=== PATIENT | female | born 1980 | race Caucasian/White ===

== ENCOUNTER 2020-12-13 13:25 | Emergency (ER) | payer OTHER, SELFPAY ==
[2020-12-13 13:28] VITALS: BP 126/79; PULSE 112; RESP 16; TEMP 36.1; O2SAT 98; BMI 34.9
--- NOTE | 2020-12-13 13:58 | ED_ITS ---
HPI - Allergic Reaction General Chief complaint: Allergic Reaction Stated complaint: allergic reaction - used epipen Time Seen by Provider: 12/13/20 13:52 Source: patient Mode of arrival: ambulatory Limitations: no limitations History of Present Illness MD complaint: allergic reaction and hives Onset (ago): hour(s) (1030am) Exposure: food (apple) Known history of allergy to: apple Symptoms: rash, itching, facial swelling, difficulty swallowing and hoarseness Severity: similar to previous episodes Treatment prior to arrival: epinephrine Previous Allergic Reaction History: anaphylaxis Related Data Previous Rx's Medication Instructions Recorded epinephrine 0.3 mg/0.3 mL 0.3 mg IM Q10M PRN #2 ea 12/13/20 injection, auto-injector Allergies Allergy/AdvReac Type Severity Reaction Status Date / Time amoxicillin [AMOXICILLIN] Allergy Severe VOMIT/HIVES Unverified 12/30/19 19:38 clavulanic acid Allergy Severe HIVES/VOMIT Unverified 12/30/19 19:38 [From AUGMENTIN] metoclopramide [From REGLAN] Allergy Severe SEIZURE/VOM Unverified 12/30/19 19:38 IT Penicillins [PENICILLINS] Allergy Severe ANAPHYLAXIS Unverified 12/30/19 19:38 tetracycline [TETRACYCLINE] Allergy Severe HIVES/VOMIT Unverified 12/30/19 19:38 azithromycin [AZITHROMYCIN] Allergy Unknown VOMIT/HIVES Unverified 12/30/19 19:38 apple Allergy Anaphylaxis Verified 12/13/20 13:32 Review of Systems Review of Systems: Constitutional : No Fever, No Chills ENT/Mouth : no oral swelling, pos Hoarseness, pos Swallowing Difficulty Eyes: No Eye Pain, No Swelling, No Redness Cardiovascular : No Chest Pain, No SOB Respiratory : No Cough, No Sputum, No Wheezing, No Smoke Exposure, No Dyspnea Gastrointestinal : No Nausea, No Vomiting, No Diarrhea, No abdominal Pain Genitourinary : No Dysuria, No Urinary Frequency, No Hematuria Musculoskeletal : No joint pain, No Myalgias, No Joint Swelling Skin : No Skin Lesions, positive rash Neuro : No Weakness, No Numbness, No Headache Psych : No Anxiety/Panic, No Depression Heme/Lymph: No Bruising, No Lymphadenopathy Endocrine : No Polyuria, No Polydipsia All other systems reviewed and are negative [facility] Past Medical History Medical History Allergic reaction Social History Social History (Updated 12/13/20 @ 14:05 by Carol Santos DO) Patient Tobacco Use Status: Never used Tobacco Use of substances other than those prescribed or required for medical reasons: No Advance Directives: No Advance Directives Information Provided: No Physical Exam Vital Signs: Vital Signs: Last Vital Signs Temp 97 F 12/13/20 13:28 Pulse 112 H 12/13/20 13:28 Resp 16 12/13/20 13:28 BP 126/79 12/13/20 13:28 Pulse Ox 98 12/13/20 13:28 Body Mass Index 34.9 Appearance: Alert. Oriented X3. No acute distress. Eyes: Pupils equal, round and reactive to light. ENT: Pharynx normal. Neck: Normal inspection. Neck supple. CVS: Normal heart rate and rhythm. Pulses normal. Chest: some slight erythema/hives noted on chest Respiratory: No respiratory distress. Breath sounds normal. Abdomen: Soft and nontender. Skin: Skin warm and dry. Normal skin color. Normal skin turgor. Extremities: No lower extremity edema. No calf ttp Neuro: Oriented X 3. No motor deficit. No sensory deficit. Course Course Course Narrative: patient feels better wants to go home MDM - Allergic Reaction MDM Narrative Medical decision making narrative: 40 yo female with prior allergic reactions self admin epi at 1030 now still feels itchy with hives and increased HR - will dose with steroids, pepcid, benadryl and observe. Patient had known exposure to apple Discharge Plan Discharge Clinical Impression: Allergic reaction Qualifiers: Encounter type: initial encounter Qualified Code(s): T78.40XA - Allergy, unspecified, initial encounter Patient Disposition: Home, Self-Care Instructions: General Allergic Reaction (ED) Additional Instructions: return to ED for any worsening symptoms or concerns Prescriptions: New epinephrine 0.3 mg/0.3 mL auto-injector 0.3 mg IM Q10M PRN (Reason: anaphylaxis) Qty: 2 RF: 0 Stand Alone Forms: Work/School Release
[2020-12-13] MEDS: diphenhydrAMINE HCL 50 MG/ML VIAL 25 MG IVPUSH (14:05)
[2020-12-13] MEDS: methylPREDNISolone Sod Succ 125 MG/2 ML VIAL IVPUSH (14:05)
[2020-12-13] MEDS: Famotidine/PF 20 MG/2 ML VIAL IVPUSH (14:06)
== END 2020-12-13 15:54 | disposition home or self-care (01) ==
PROVIDERS: Emergency Provider Emergency Medicine; PCP Internal Medicine Sports Medicine
DX: T78.1XXA Other adverse food reactions, not elsewhere classified, initial encounter (principal); L50.9 Urticaria, unspecified; X58.XXXA Exposure to other specified factors, initial encounter
CPT/HCPCS: 96374; 96375; 99283; 99284; J1200; J2930

== ENCOUNTER 2022-11-07 18:07 | Emergency (ER) | payer BC, SELFPAY ==
--- NOTE | ~2022-11-07 | US_ITS ---
EXAMINATION: US VENOUS ULTRASOUND WITH DOPPLER LOWER EXTREMITY, RIGHT CLINICAL INFORMATION: Right calf pain COMPARISON: None available. TECHNIQUE: Ultrasound of the deep veins is performed from the hip to the calf with compression sonography and color and pulse Doppler assessment. Spectral analysis with color-flow imaging is performed. FINDINGS: There is normal venous compression and respiratory variation and augmented flow. The visualized common femoral vein, superficial femoral vein, profunda femoral vein, popliteal vein, and the trifurcation region shows no evidence of deep venous thrombosis. There is no significant popliteal fossa cyst. If the patient's symptoms persist, followup ultrasound in 5 days 7 days might be of value to exclude proximal propagation from a non-visualized calf vein. US/US venous duplex LE RT IMPRESSION: No DVT demonstrated in the right lower extremity.
[2022-11-07 18:46] VITALS: BP 136/83; PULSE 82; RESP 16; O2SAT 100; BMI 33.7
--- NOTE | 2022-11-07 18:46 | ED.GENADULT ---
HPI - General Adult General Chief complaint: Extremity Injury, Lower Stated complaint: blood clot in leg? Time Seen by Provider: 11/07/22 21:25 Source: patient Mode of arrival: ambulatory Limitations: no limitations History of Present Illness HPI narrative: 42-year-old female came in for evaluation of right lower extremity cramps and pain, patient declined any recent travel or prolonged immobilization or history of DVT, patient also declined any trauma or injury to the right leg, pain described as dull aching cramps in the right calf with swelling feels better with massaging the leg. Related Data Previous Rx's Medication Instructions Recorded epinephrine 0.3 mg/0.3 mL 0.3 mg (0.3 mL) IM Q10M PRN 12/13/20 injection, auto-injector anaphylaxis #2 ea Allergies Allergy/AdvReac Type Severity Reaction Status Date / Time amoxicillin [AMOXICILLIN] Allergy Severe VOMIT/HIVES Unverified 12/30/19 19:38 clavulanic acid Allergy Severe HIVES/VOMIT Unverified 12/30/19 19:38 [From AUGMENTIN] metoclopramide [From REGLAN] Allergy Severe SEIZURE/VOM Unverified 12/30/19 19:38 IT Penicillins [PENICILLINS] Allergy Severe ANAPHYLAXIS Unverified 12/30/19 19:38 tetracycline [TETRACYCLINE] Allergy Severe HIVES/VOMIT Unverified 12/30/19 19:38 azithromycin [AZITHROMYCIN] Allergy Unknown VOMIT/HIVES Unverified 12/30/19 19:38 apple Allergy Anaphylaxis Verified 12/13/20 13:32 Review of Systems Review of Systems: All other systems are reviewed and are negative Constitutional: Reports as per HPI and Reports no additional constitutional complaints Eyes: Reports as per HPI and Reports no additional eye complaints Reports system reviewed and no additional complaints, except as documented Cardiovascular: Reports as per HPI and Reports no additional cardiovascular complaints Respiratory: Reports as per HPI and Reports no additional respiratory complaints Gastrointestinal: Reports as per HPI and Reports no additional gastrointestinal complaints Genitourinary: Reports no additional female genitourinary complaints Musculoskeletal: Reports no additional musculoskeletal complaints Skin/Breast: Reports system reviewed and no additional complaints, except as docu Psychiatric: Reports no additional psychiatric complaints Endocrine: Reports no additional endocrine complaints Hematologic/Lymphatic: Reports no additional hematologic/lymphatic complaints Allergic/Immunologic: Reports no additional allergic/immunologic complaints Reports system reviewed and no additional complaints, except as documented and Reports Abnormal speech present [facility] Past Medical History Medical History Allergic reaction Social History Social History Patient Tobacco Use Status: Never used Tobacco Advance Directives: No Advance Directives Information Provided: No Patient : No Physical Exam ED Vital Signs: Vital Signs - 24 hr 11/07/22 18:46 11/07/22 21:18 Pulse Rate 82 80 Respiratory Rate 16 18 Blood Pressure 136/83 151/86 H Pulse Oximetry 100 100 Oxygen Delivery Method Room Air Room Air BMI result Body Mass Index 33.7 Vital signs have been reviewed as appeared to be correct. Blood pressure normal. Heart rate normal. Respiration rate normal. Temperature normal. Oxygen saturation normal. Appearance: Alert. Oriented X3. No acute distress. Head: Normal external exam. Normocephalic. Atraumatic. No Patricio signs noted. No raccoon eyes noted Eyes: PERRLA. EOMI. Conjunctiva and sclera normal. Eyelids normal. ENT: TM's Normal. Pharynx normal. Uvula midline. Moist mucous membranes. No trismus noted. No drooling noted. No muffled voice noted. Neck: Normal inspection. Neck supple. FROM. No adenopathy. Thyroid Normal. No meningeal signs. No neck mass noted. CVS: Normal heart rate and rhythm. Heart sound normal. No murmurs noted. Pulses normal throughout. Respiratory: No respiratory distress. Painless inspiration. Breath sounds normal. No wheezes/rales/rhonchi noted. Chest nontender. No accessory muscle usage noted or decreased air movement noted. Abdomen: Soft and nontender. Bowel sounds normal in all 4 quadrants. No distention noted. No organomegaly noted. No visible injury noted. Back: No CVA tenderness. Full range of motion noted. Skin: Skin warm and dry. Normal skin color. Normal skin turgor. No rashes/lesions/lacerations noted. Extremities: No lower extremity edema mild right calf tenderness. Extremities exhibit normal range of motion. Extremities nontender. Neuro: Oriented X 3. Cranial nerve exam: II-XII are grossly intact No motor deficit. No sensory deficit. Reflexes normal. Course Course Course Narrative: This is an RME: Additional HPI, ROS, PE not included below will be deferred to primary provider. 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 TTP over calf, unable to visualize calf due to unable to RLE due to pants. Plan: Labs, US Reevaluation(s) Reevaluation #1: Right lower extremities pain for 2 days ultrasound showing no DVT, continue with leg elevation, rest, heating pad, NSAIDs if needed for pain. Time: 21:41 Medical Decision Making Differential Diagnosis Differential Diagnoses: The differential diagnosis associated with the presentation includes (DVT, cellulitis, electrolyte abnormality, severe dehydration, severe anemia.) Admission/Observation Consideration of admission/observation: Escalation of care including admission/observation considered Lab Data MDM Lab Attestation statement: I reviewed the patient's lab results. 11/07/22 19:08 11/07/22 19:08 Labs: Lab Results 11/07/22 11/07/22 11/07/22 Range/Units 19:08 19:08 19:08 WBC 5.3 (4.8-10.8) X10*3/uL RBC 4.54 (4.20-5.50) X10*6/uL Hgb 9.4 L (12.0-16.0) g/dl Hct 32.0 L (37.0-47.0) % MCV 70.5 L (80.0-98.0) fL MCH 20.7 L (27.0-33.0) pg MCHC 29.4 L (31.0-35.0) g/dl RDW 15.8 (11.0-16.0) % Plt Count 363 (160-400) X10*3/uL MPV 9.1 L (9.4-12.3) fL Immature Gran % (Auto) 0.2 (0.0-0.4) % Neut % (Auto) 53.2 (45-73) % Lymph % (Auto) 34.3 (20-40) % [place] % (Auto) 8.8 (2-11) % Eos % (Auto) 2.4 (0-4) % Baso % (Auto) 1.1 (0-2) % Lymph # (Auto) 1.8 (1.2-4.9) X10*3/uL [place] # (Auto) 0.5 (0.1-1.2) X10*3/uL Eos # (Auto) 0.1 (0.0-0.4) X10*3/uL Baso # (Auto) 0.1 (0.0-0.2) X10*3/uL Abs Immat Gran (auto) 0.01 (0.00-0.03) X10*3/uL Absolute Neuts (auto) 2.8 (2.0-8.3) x10*3/uL Absolute Nucleated RBC 0.000 (0.0-0.012) X10*3/uL Nucleated RBC % (auto) 0.0 (0.0-0.2) /100WBC PT 12.0 (11.1-13.3) SEC INR 1.0 (0.9-1.1) APTT 31.9 (26.0-36.4) SEC Sodium 138 (135-145) mmol/L Potassium 3.7 (3.3-5.1) mmol/L Chloride 107 (96-108) mmol/L Carbon Dioxide 20 L (22-29) mmol/L Anion Gap 15 (12-20) BUN 9 (9-16) mg/dL Creatinine 0.68 (0.5-1.4) mg/dL Estim Creat Clear Calc 112.2 Estimated GFR > 60 Random Glucose 85 (60-115) mg/dL Calcium 9.9 (8.4-10.2) mg/dL Urine Color Urine Appearance Urine pH (5.0-9.0) Ur Specific [place] (1.005-1.025) Urine Protein (Neg-Trace) mg/dL Urine Glucose (UA) (Negative) mg/dL Urine Ketones (Negative) mg/dL Urine Blood (Negative) Urine Nitrite (Negative) Ur Leukocyte Esterase (Negative) Urine RBC (0-2) /HPF Urine WBC (0-5) /HPF Ur Squamous Epith Cells (0-2) /HPF Urine Bacteria (None Seen) Hyaline Casts (0-2) /LPF 11/07/22 Range/Units 19:08 WBC (4.8-10.8) X10*3/uL RBC (4.20-5.50) X10*6/uL Hgb (12.0-16.0) g/dl Hct (37.0-47.0) % MCV (80.0-98.0) fL MCH (27.0-33.0) pg MCHC (31.0-35.0) g/dl RDW (11.0-16.0) % Plt Count (160-400) X10*3/uL MPV (9.4-12.3) fL Immature Gran % (Auto) (0.0-0.4) % Neut % (Auto) (45-73) % Lymph % (Auto) (20-40) % [place] % (Auto) (2-11) % Eos % (Auto) (0-4) % Baso % (Auto) (0-2) % Lymph # (Auto) (1.2-4.9) X10*3/uL [place] # (Auto) (0.1-1.2) X10*3/uL Eos # (Auto) (0.0-0.4) X10*3/uL Baso # (Auto) (0.0-0.2) X10*3/uL Abs Immat Gran (auto) (0.00-0.03) X10*3/uL Absolute Neuts (auto) (2.0-8.3) x10*3/uL Absolute Nucleated RBC (0.0-0.012) X10*3/uL Nucleated RBC % (auto) (0.0-0.2) /100WBC PT (11.1-13.3) SEC INR (0.9-1.1) APTT (26.0-36.4) SEC Sodium (135-145) mmol/L Potassium (3.3-5.1) mmol/L Chloride (96-108) mmol/L Carbon Dioxide (22-29) mmol/L Anion Gap (12-20) BUN (9-16) mg/dL Creatinine (0.5-1.4) mg/dL Estim Creat Clear Calc Estimated GFR Random Glucose (60-115) mg/dL Calcium (8.4-10.2) mg/dL Urine Color Yellow Urine Appearance Clear Urine pH 6.5 (5.0-9.0) Ur Specific [place] <= 1.005 (1.005-1.025) Urine Protein Negative (Neg-Trace) mg/dL Urine Glucose (UA) Negative (Negative) mg/dL Urine Ketones Negative (Negative) mg/dL Urine Blood Negative (Negative) Urine Nitrite Negative (Negative) Ur Leukocyte Esterase Trace H (Negative) Urine RBC 3-5 H (0-2) /HPF Urine WBC 0-5 (0-5) /HPF Ur Squamous Epith Cells 0-2 (0-2) /HPF Urine Bacteria Trace (None Seen) Hyaline Casts 0-2 (0-2) /LPF Independent Interpretation I performed an independent interpretation of an: Ultrasound (Right lower extremity ultrasound: No DVT.) Discharge Plan Discharge Clinical Impression: Leg pain, right Patient Disposition: Home, Self-Care Instructions: Leg Pain (ED) Prescriptions: No Action epinephrine 0.3 mg/0.3 mL auto-injector 0.3 mg IM Q10M PRN (Reason: anaphylaxis) Qty: 2 0RF Rx Instructions: for 2 doses Referrals: Riley Rivera MD [Primary Care Provider] - Stand Alone Forms: Work/School Release
[2022-11-07 19:12] LABS: MANUAL DIFF FLAG NO
[2022-11-07 19:14] LABS: Basophils Absolute Auto 0.1 X10*3/uL (0.0-0.2); Basophils Percent Auto 1.1 % (0-2); Eosinophils Absolute Auto 0.1 X10*3/uL (0.0-0.4); Eosinophils Percent Auto 2.4 % (0-4); Hemoglobin 9.4 g/dl (12.0-16.0); Imm Gran Abs Auto 0.01 X10*3/uL (0.00-0.03); Imm Gran Pct Auto 0.2 % (0.0-0.4); Lymphocytes Absolute Auto 1.8 X10*3/uL (1.2-4.9); Lymphocytes Percent Auto 34.3 % (20-40); Mean Corpuscular HGB Conc 29.4 g/dl (31.0-35.0); Mean Corpuscular Hemoglobin 20.7 pg (27.0-33.0); Mean Corpuscular Volume 70.5 fL (80.0-98.0); Mean Platelet Volume 9.1 fL (9.4-12.3); Monocytes Absolute Auto 0.5 X10*3/uL (0.1-1.2); Monocytes Percent Auto 8.8 % (2-11); Neutrophils Absolute Auto 2.8 x10*3/uL (2.0-8.3); Neutrophils Percent Auto 53.2 % (45-73); Platelet Count 363 X10*3/uL (160-400); Red Blood Count 4.54 X10*6/uL (4.20-5.50); Red Cell Distribution Width 15.8 % (11.0-16.0); White Blood Count 5.3 X10*3/uL (4.8-10.8)
[2022-11-07 19:15] LABS: Appearance Urine Clear; Color Urine Yellow; Glucose Urine UA Negative (Negative); Leukocyte Esterase Urine Trace (Negative); Nitrite Urine Negative (Negative); PH 6.5 (5.0-9.0); Specific Gravity - Urine <= 1.005 (1.005-1.025); UMIC TRIGGER UACC YES; Urine Blood Negative (Negative); Urine Ketones Negative (Negative); Urine Protein Negative (Neg-Trace)
[2022-11-07 19:20] LABS: Bacteria Urine Trace (None Seen); Hyaline Casts Urine 0-2 /LPF (0-2); Squamous Epithelial Cell Urine 0-2 /HPF (0-2); WBC Urine 0-5 /HPF (0-5)
[2022-11-07 19:29] LABS: Anion Gap 15 (12-20); Blood Urea Nitrogen 9 mg/dL (9-16); Calcium 9.9 mg/dL (8.4-10.2); Carbon Dioxide 20 mmol/L (22-29); Chloride 107 mmol/L (96-108); Creatinine Clr Calc Pharmacy 112.2; Estimated Glomerular Filt Rate > 60; Glucose Random 85 mg/dL (60-115); Potassium 3.7 mmol/L (3.3-5.1); Sodium 138 mmol/L (135-145)
[2022-11-07 19:43] LABS: Partial Thromboplastin Time 31.9 SEC (26.0-36.4)
[2022-11-07 21:18] VITALS: BP 151/86; PULSE 80; RESP 18; O2SAT 100
[2022-11-07] MEDS: oxyCODONE HCl Immed Release 5 MG TABLET PO (21:55)
== END 2022-11-07 21:58 | disposition home or self-care (01) ==
PROVIDERS: Physician Assistant Medical; Emergency Provider Emergency Medicine; PCP Internal Medicine Sports Medicine
DX: R60.0 Localized edema (principal); M79.604 Pain in right leg; Z79.899 Other long term (current) drug therapy
CPT/HCPCS: 36415; 80048; 81001; 85025; 85610; 85730; 93971; 99284

== ENCOUNTER 2024-10-29 16:48 | Emergency (ER) | payer BC, SELFPAY ==
--- NOTE | ~2024-10-29 | CT_ITS ---
CLINICAL HISTORY: LLQ Pain; Hx Divertic CT abdomen and pelvis with contrast Comparison: None provided Findings: Lung bases are clear. No acute bony abnormalities. Liver and spleen within normal limits. Pancreas and adrenal glands unremarkable. Gallbladder is within normal limits. No significant focal renal abnormalities. No renal stones or hydronephrosis. Abdominal aorta is normal in caliber. No free fluid or adenopathy in the pelvis. No diverticulitis. Appendix unremarkable. Hysterectomy. No adnexal abnormality. Impression: No acute process This document has been electronically signed by: Judson Whitfield MD on 10/29/2024 19:53:57
--- NOTE | ~2024-10-29 | US_ITS ---
CLINICAL HISTORY: Hx Hysterectomy and Ovarian Cyst; LLQ Pain, Neg CT Transabdominal and transvaginal pelvic ultrasound Comparison: None Findings: Hysterectomy. No free fluid. Right ovary 2.1 x 1.4 x 1.3 cm. Left ovary 2.9 x 1.8 x 2.6 cm. No significant focal abnormality. Impression: No acute process This document has been electronically signed by: Judson Whitfield MD on 10/29/2024 21:12:02
[2024-10-29 16:51] VITALS: BP 137/79; PULSE 95; RESP 16; TEMP 36.6; O2SAT 97; BMI 26.8
--- NOTE | 2024-10-29 16:55 | ED_ITS ---
HPI - General Adult General Chief complaint: Abdominal Pain Stated complaint: left side pain Time Seen by Provider: 10/29/24 18:14 Source: patient Mode of arrival: ambulatory Limitations: no limitations History of Present Illness ED Provider: Magnus BRAMBILA HPI narrative: Patient is a 44-year-old female presenting to the ED for evaluation of gradual onset left lower quadrant and flank pain with associated nausea without associated vomiting, fever/chills, chest pain, shortness of breath, dysuria, hematuria, diarrhea, hematochezia, or melena. The patient reports symptoms began last night after attending a work function, increased throughout the evening and persisted throughout the day today. The patient reports a history of diverticulosis diagnosed by colonoscopy a few years ago, denies history of diverticulitis. The patient also reports history of multiple ovarian cysts, is status post hysterectomy in July without oophorectomy. The patient denies history of kidney stones. The patient reports she is also status post appendectomy as well as a laparoscopic removal of ovarian cysts at a very young age, denies other surgical abdominal history. Related Data Previous Rx's ?Medication ?Instructions ?Recorded epinephrine 0.3 mg/0.3 mL 0.3 mg (0.3 mL) IM Q10M PRN 12/13/20 injection, auto-injector anaphylaxis #2 ea acetaminophen 500 mg capsule 1,000 mg (2 x 500 mg) PO .q8 PRN 10/29/24 fever or pain #30 caps ibuprofen 600 mg tablet 600 mg PO Q8H PRN fever or p ain 10/29/24 #30 tabs Allergies Allergy/AdvReac Type Severity Reaction Status Date / Time amoxicillin (AMOXICILLIN) Allergy Severe VOMIT/HIVES Verified 10/29/24 16:55 clavulanic acid (From Allergy Severe HIVES/VOMIT Verified 10/29/24 16:55 AUGMENTIN) metoclopramide (From REGLAN) Allergy Severe SEIZURE/VOM Verified 10/29/24 16:55 IT Penicillins (PENICILLINS) Allergy Severe ANAPHYLAXIS Verified 10/29/24 16:55 tetracycline (TETRACYCLINE) Allergy Severe HIVES/VOMIT Verified 10/29/24 16:55 azithromycin (AZITHROMYCIN) Allergy Unknown VOMIT/HIVES Verified 10/29/24 16:55 apple Allergy Anaphylaxis Verified 10/29/24 16:55 Review of Systems 2 Review of Systems: Yes all other systems are reviewed and are negative PMFSH Past Medical History Medical History Allergic reaction Social History Social History Patient Tobacco Use Status: Never used Tobacco Substance Use Type: Marijuana Physical Exam ED Vital Signs: Vital Signs - 24 hr 10/29/24 16:51 10/29/24 22:35 Temperature 97.8 F 98.0 F Pulse Rate 95 78 Respiratory Rate 16 16 Blood Pressure 137/79 129/84 Pulse Oximetry 97 97 Oxygen Delivery Method Room Air Room Air BMI result Body Mass Index 26.8 CONSTITUTIONAL: The patient appears non-toxic, well nourished and in no acute distress. Vital signs as documented. HEAD: Atraumatic, normocephalic. EYES: EOMs grossly intact, pupils equal, conjunctiva clear, no exudate. ENT: Nares patent, no discharge. Airway patent, no audible stridor, visible mucosa is pink and moist without noted lesions. NECK: Trachea is midline, no obvious masses or gross abnormalities. CHEST: Symmetric movement, normal appearance. LUNGS: LS present and CTAB, no w/r/r. Non-labored work of breathing. CARDIAC: Regular Rhythm, S1/S2 appreciated, no murmurs, rubs or gallops. ABDOMEN: Abdomen soft x4 quadrants, positive tenderness of the left lower quadrant, equivocal rebound, negative Rovsing's, no palpable masses or organomegaly. Negative CVAT bilaterally. : Deferred. EXTREMITIES: Normal tone, moves all extremities spontaneously without reported pain. No obvious acute injury or deformity noted. NEURO: Alert and oriented x3, CN II-XII appear grossly intact. Cerebellar Functioning grossly intact. No obvious sensory or motor deficits. Speech clear and appropriate. PSYCH: normal affect, appropriate eye contact, fluid speech, with appropriate response to questioning. No reported suicidality or homicidality. SKIN: Warm, dry, color appropriate, normal turgor. No rashes noted. Course Course Course Narrative: 44-year-old female presents to ED for left lower quadrant abdominal pain radiating to the flank with nausea. Patient has history of diverticulitis. Patient denies any dysuria hematuria. Patient states some blood in stool. Labs ordered Medications Administered Discontinued Medications Generic Name Dose Route Start Last Admin Trade Name Freq PRN Reason Stop Dose Admin Sodium Chloride 1,000 mls @ 999 mls/hr 10/29/24 18:30 10/29/24 22:39 Ns IV 10/29/24 19:30 Infused .Q1H1M JOHANNA Infusion Iohexol 85 ml 10/29/24 18:54 10/29/24 18:54 Iohexol 350 Mg/Ml 100 Ml Infus..Btl IV 10/29/24 18:55 85 ml ONCE ONE Administration Ketorolac Tromethamine 15 mg 10/29/24 22:20 10/29/24 22:32 Ketorolac Tromethamine 15 Mg/Ml Vial IVPUSH 10/29/24 22:21 15 mg ONCE ONE Administration Morphine Sulfate 4 mg 10/29/24 18:33 10/29/24 18:40 Morphine Sulfate 4 Mg/Ml Cartridge IVPUSH 10/29/24 18:34 4 mg ONCE ONE Administration Protocol Medical Decision Making Medical Decision Making MDM Narrative: 6:37 PM 10/29/2024 (Sedrick BRAMBILA): The patient is a 44-year-old female presenting to the ED for evaluation of gradual onset left lower quadrant abdominal pain radiating to her left flank which began yesterday evening with associated nausea without vomiting or fever. The patient has history of diverticulosis diagnosed on colonoscopy, no history of diverticulitis. The patient's exam reveals left lower quadrant abdominal tenderness with equivocal rebound. The patient's laboratory evaluation shows no leukocytosis, anemia, electrolyte abnormality, or DEEJAY. The patient's urinalysis negative for infection or microscopic hematuria. The patient will be sent for CT abdomen and pelvis to evaluate for diverticulitis, if no evidence of diverticulitis patient will be sent for ultrasound to rule out ovarian cyst versus other ovarian pathology. The patient's symptoms we treated with IV fluid hydration and morphine, the patient took ODT Zofran prior to arrival in the ED. 8:04 PM 10/29/2024 (Sedrick BRAMBILA): Patient's CT shows no evidence of diverticulitis or other acute intra-abdominal pathology. Patient will be sent for ultrasound to rule out ovarian process. 11:38 PM 10/29/2024 (Sedrick BRAMBILA): The patient's ultrasound shows no evidence of acute process. The patient reports moderate improvement in symptoms following Toradol more than morphine. Seeing as the patient's laboratory evaluation, CT, and ultrasound showed no evidence of infectious, obstructive, or other emergent process, patient will be discharged home to follow up with PCP and OBGYN. The patient does have a history of endometriosis, patient reports her last menstrual period prior to her hysterectomy was June 30, given this timeline, the patient may be suffering from hormonal related cramping due to remaining endometrial tissue in the abdominal cavity. Patient has been advised to keep a log of pain and follow up with PCP and OBGYN. We will discharge with anti-inflammatories. Admission/Observation Consideration of admission/observation: Escalation of care including admission/observation considered Lab Data MDM Lab Attestation statement: I reviewed the patient's lab results. 10/29/24 17:07 10/29/24 17:07 Labs: Lab Results 10/29/24 10/29/24 Range/Units 17:07 17:15 WBC 5.8 (4.8-10.8) X10*3/uL RBC 4.27 (4.20-5.50) X10*6/uL Hgb 9.8 L (12.0-16.0) g/dl Hct 30.5 L (37.0-47.0) % MCV 71.4 L (80.0-98.0) fL MCH 23.0 L (27.0-33.0) pg MCHC 32.1 (31.0-35.0) g/dl RDW 16.5 H (11.0-16.0) % Plt Count 293 (160-400) X10*3/uL MPV 9.2 L (9.4-12.3) fL Immature Gran % (Auto) 0.2 (0.0-0.4) % Neut % (Auto) 64.9 (45-73) % Lymph % (Auto) 23.7 (20-40) % [place] % (Auto) 8.1 (2-11) % Eos % (Auto) 2.2 (0-4) % Baso % (Auto) 0.9 (0-2) % Lymph # (Auto) 1.4 (1.2-4.9) X10*3/uL [place] # (Auto) 0.5 (0.1-1.2) X10*3/uL Eos # (Auto) 0.1 (0.0-0.4) X10*3/uL Baso # (Auto) 0.1 (0.0-0.2) X10*3/uL Abs Immat Gran (auto) 0.01 (0.00-0.03) X10*3/uL Absolute Neuts (auto) 3.8 (2.0-8.3) x10*3/uL Absolute Nucleated RBC 0.000 (0.0-0.012) X10*3/uL Nucleated RBC % (auto) 0.0 (0.0-0.2) /100WBC Sodium 138 (135-145) mmol/L Potassium 3.4 (3.3-5.1) mmol/L Chloride 106 (96-108) mmol/L Carbon Dioxide 25 (22-29) mmol/L Anion Gap 10 L (12-20) BUN 10 (9-16) mg/dL Creatinine 0.62 (0.5-1.4) mg/dL Estim Creat Clear Calc 107.6 Estimated GFR > 60 Random Glucose 92 (60-115) mg/dL Calcium 8.9 D (8.4-10.2) mg/dL Total Bilirubin 0.4 (0.0-1.0) mg/dL AST 19 (5-31) U/L ALT 16 (0-31) U/L Alkaline Phosphatase 92 (39-117) U/L Total Protein 6.5 (6.5-8.0) g/dL Albumin 4.2 (3.5-5.0) g/dL Lipase 54 (8-78) U/L Beta HCG, Quant < 2 mIU/mL Urine Color Yellow Urine Appearance Clear Urine pH 6.5 (5.0-9.0) Ur Specific [place] 1.025 (1.005-1.025) Urine Protein Trace (Neg-Trace) mg/dL Urine Glucose (UA) Negative (Negative) mg/dL Urine Ketones Trace (Negative) mg/dL Urine Blood Negative (Negative) Urine Nitrite Negative (Negative) Ur Leukocyte Esterase Negative (Negative) Radiology Impression Discussion of test interpretation with radiology: I have reviewed the radiologist's reading. Radiologist Impression: CT abdomen and pelvis with contrast Comparison: None provided Findings: Lung bases are clear. No acute bony abnormalities. Liver and spleen within normal limits. Pancreas and adrenal glands unremarkable. Gallbladder is within normal limits. No significant focal renal abnormalities. No renal stones or hydronephrosis. Abdominal aorta is normal in caliber. No free fluid or adenopathy in the pelvis. No diverticulitis. Appendix unremarkable. Hysterectomy. No adnexal abnormality. Impression: No acute process This document has been electronically signed by: Judson Whitfield MD on 10/29/2024 19:53:57 CLINICAL HISTORY: Hx Hysterectomy and Ovarian Cyst; LLQ Pain, Neg CT Transabdominal and transvaginal pelvic ultrasound Comparison: None Findings: Hysterectomy. No free fluid. Right ovary 2.1 x 1.4 x 1.3 cm. Left ovary 2.9 x 1.8 x 2.6 cm. No significant focal abnormality. Impression: No acute process This document has been electronically signed by: Judson Whitfield MD on 10/29/2024 21:12:02 Prescription Management I considered prescription management with: Pain Medication Discharge Plan Discharge Clinical Impression: Abdominal pain Patient Disposition: Home, Self-Care Instructions: Endometriosis (ED), Abdominal Pain (ED) Additional Instructions: Thank you for choosing [facility] Emergency Department for your care today. Thankfully your laboratory evaluation, urinalysis, CT, and ultrasound today showed no evidence of any acute emergent process requiring requiring admission to the hospital or continued ED observation, and it is safe to discharge you home. The exact cause of your symptoms is not entirely clear, however given the timing of your pain compared to your most recent menstruation prior to your hysterectomy, it is possible that your pain is related to hormonal regulated cramping/pain. Please keep a log of your pain and discuss your symptoms with your PCP and OBGYN. You may take alternating (staggered) doses of ibuprofen 600mg and Tylenol 1000mg every 4 hours as needed for any additional pain. Please stay well hydrated and get plenty of rest. You may apply heat or ice to the area as effective. Please follow up with your primary care physician and OBGYN for re-evaluation, additional management of your symptoms, and continued preventative care. If you do not have a primary care physician, please call the [facility] at [phone] to establish a new primary care physician. While waiting to establish your new primary care physician, you can call our [facility] at [phone] for non-emergency needs. Please return to the emergency department if you develop a severe or sudden change in your symptoms, a fever over 100.4 that does not improve with Tylenol or Ibuprofen, recurrent vomiting, or any other new or worsening symptoms or concerns. Prescriptions: New ibuprofen 600 mg tablet 600 mg PO Q8H PRN (Reason: fever or pain) Qty: 30 0RF acetaminophen 500 mg capsule 1,000 mg PO .q8 PRN (Reason: fever or pain) Qty: 30 0RF No Action epinephrine 0.3 mg/0.3 mL auto-injector 0.3 mg IM Q10M PRN (Reason: anaphylaxis) Qty: 2 0RF Rx Instructions: for 2 doses Interventions: ED Discharge Assessment Last Done: 10/29/24 23:45 Discharge Date/Time: 10/29/24 23:55 Print Language: Indonesian
[2024-10-29 17:20] LABS: MANUAL DIFF FLAG NO
[2024-10-29 17:21] LABS: Hematocrit 30.5 % (37.0-47.0); Hemoglobin 9.8 g/dl (12.0-16.0); Imm Gran Abs Auto 0.01 X10*3/uL (0.00-0.03); Imm Gran Pct Auto 0.2 % (0.0-0.4); Lymphocytes Absolute Auto 1.4 X10*3/uL (1.2-4.9); Mean Corpuscular HGB Conc 32.1 g/dl (31.0-35.0); Mean Corpuscular Hemoglobin 23.0 pg (27.0-33.0); Mean Corpuscular Volume 71.4 fL (80.0-98.0); NRBC Abs Auto 0.000 X10*3/uL (0.0-0.012); NRBC Pct Auto 0.0 /100WBC (0.0-0.2); Platelet Count 293 X10*3/uL (160-400); Red Blood Count 4.27 X10*6/uL (4.20-5.50); White Blood Count 5.8 X10*3/uL (4.8-10.8)
[2024-10-29 17:23] LABS: Appearance Urine Clear; Glucose Urine UA Negative (Negative); PH 6.5 (5.0-9.0); Specific Gravity - Urine 1.025 (1.005-1.025)
[2024-10-29 17:51] LABS: Alanine Aminotransferase 16 U/L (0-31); Albumin Level 4.2 g/dL (3.5-5.0); Alkaline Phosphatase 92 U/L (39-117); Anion Gap 10 (12-20); Aspartate Amino Transferase 19 U/L (5-31); Blood Urea Nitrogen 10 mg/dL (9-16); Calcium 8.9 mg/dL (8.4-10.2); Carbon Dioxide 25 mmol/L (22-29); Chloride 106 mmol/L (96-108); Creatinine Clr Calc Pharmacy 107.6; Estimated Glomerular Filt Rate > 60; Lipase 54 U/L (8-78); Potassium 3.4 mmol/L (3.3-5.1); Sodium 138 mmol/L (135-145); Total Protein 6.5 g/dL (6.5-8.0)
[2024-10-29] MEDS: iohexoL 350 MG/ML 100 ML INFUS..BTL 85 ML IV (18:54)
[2024-10-29 22:35] VITALS: BP 129/84; PULSE 78; RESP 16; TEMP 36.7; O2SAT 97
--- NOTE | 2024-10-29 22:36 | PC.NURSE ---
Pt stating ultrasound caused her to be in pain. Spoke to provider to recieve pain medication. IV toradol administered. Pt c/o 10/21 pain. Appears uncomfortable.
[2024-10-29 23:45] VITALS: BP 129/74; PULSE 74; RESP 16; TEMP 36.7; O2SAT 99
== END 2024-10-29 23:55 | disposition home or self-care (01) ==
PROVIDERS: Physician Assistant; Emergency Provider Emergency Medicine Emergency Medical Services
DX: R10.32 Left lower quadrant pain (principal)
CPT/HCPCS: 36415; 74177; 76830; 76856; 80053; 81003; 83690; 84702; 85025; 96361; 96374; 96375; 99284; J1885; J2270; Q9967

== ENCOUNTER → 2024-10-29 18:18 | Outpatient (BNV) | payer BC, SELFPAY | PROVIDERS: Emergency Provider Emergency Medicine Emergency Medical Services; Visit Provider Radiology Diagnostic Radiology | DX: R10.32 Left lower quadrant pain (principal) | CPT/HCPCS: 74177; 76830; 76856 ==